=== PATIENT | female | born 1955 | race Caucasian/White ===

== ENCOUNTER 2023-02-08 09:01 | Day surgery (SDC) | payer MEDICARE, OTHER ==
[~2023-02-08 09:01] MED LIST: Lactated Ringers 1,000 ML IV SCH; Sodium Chloride 0.9% 10 ML Syringe FLUSH PRN
[2023-02-08] MEDS ORDERED: Midazolam 1 MG/ML 2 ML SDV ONE (11:03)
[2023-02-08] MEDS ORDERED: Propofol 200 MG/20 ML SDV ONE (11:04)
== END 2023-02-08 13:17 | disposition home or self-care (01) ==
LOC: KA.SDS 09:01
PROVIDERS: ATTEND Family Medicine
DX: Z12.11 Encounter for screening for malignant neoplasm of colon (principal); I10 Essential (primary) hypertension; E78.5 Hyperlipidemia, unspecified; F41.9 Anxiety disorder, unspecified; R20.0 Anesthesia of skin; Z88.8 Allergy status to other drugs, medicaments and biological substances; Z91.09 Other allergy status, other than to drugs and biological substances; Z79.899 Other long term (current) drug therapy
CPT/HCPCS: 00811; J2250; J2704; J7120